=== PATIENT | female | born 1965 | race African-American/Black ===

== ENCOUNTER 2021-09-13 14:33 | Inpatient (IN) | payer OTHER ==
[~2021-09-13] VITALS: Ht 162.6 cm; Wt 76.7 kg
[2021-09-13 14:33] VITALS: BP 155/93
[2021-09-13] MEDS ORDERED: LANTUS SOL100 UNIT/1 SUBQ (15:21)
[2021-09-13] MEDS ORDERED: AMLODIPINE BESY10 MG PO (15:21)
[2021-09-13] MEDS ORDERED: SYMBICORT160 MCG/4. INH (15:22)
[2021-09-13] MEDS ORDERED: PROAIR HFA8.5 GM INH (15:22)
[2021-09-13] MEDS ORDERED: ATORVASTATIN CA20 MG PO (15:23)
[2021-09-13 15:28] LABS: ABSOLUTE NEUTROPHILS 3.9 thou/uL (1.4-8.2); BASOPHILS 0.8 % (0.0-2.0); EOSINOPHILS 13.6 % (0.0-3.0); HEMATOCRIT 39.3 % (37.0-47.0); LYMPHOCYTES 36.2 % (24.0-44.0); MCH 28.1 pg (26.0-34.0); MCHC 33.2 g/dL (28.0-37.0); MCV 84.6 fL (80.0-100.0); MONOCYTES 6.4 % (1.0-8.0); PLATELET COUNT 167 thou/uL (150-400); RBC 4.64 mil/uL (4.20-5.00); RDW 14.6 % (10.5-14.5); WBC 9.1 thou/uL (4.0-11.0)
[2021-09-13 15:32] LABS: CALCIUM 9.2 mg/dL (8.5-10.1); CREATININE 1.1 mg/dL (0.6-1.0); POTASSIUM 3.9 mmol/L (3.5-5.1)
[2021-09-13 15:42] LABS: ALBUMIN 3.6 g/dL (3.4-5.0); TOTAL BILIRUBIN 0.5 mg/dL (0.2-1.0); TOTAL PROTEIN 7.7 g/dL (6.4-8.2)
[2021-09-13 16:04] VITALS: BP 131/98
[2021-09-13 16:46] VITALS: BP 129/93
[2021-09-13 17:29] VITALS: BP 146/97
--- NOTE | 2021-09-13 17:48 | NUR ---
ASSUMED PT CARE AT 1700 FROM ED. PT IS ALERT & ORIENTED X4. PT HAS IV SITE ON RFA 20 GAUGE. PT HAS TELE MONITOR ON. PT IS ON 2L NC O2. PT IS ACCUCHECK ACHS. FINISHED ADMISSION. LAST BM WAS TODAY. PT STATED SHE USES CANE AND WALKER AT HOME. NO C/O OF PAIN, NAUSEA AND VOMITING. PT IS ON THE BED EATING DINNER, BED ON THE LOWEST POSITION, SIDE RAILS UP, CALL LIGHT WITHIN REACH. WILL CONTINUE TO MONITOR PT. FOLLOW POC.
[2021-09-13 20:56] VITALS: BP 157/103
--- NOTE | 2021-09-14 03:21 | NUR ---
ASSUMED CARE OF PT AT 1900. PT IS A/O X4 AND IS UP WITH SBA TO THE BSC DUE TO PT UNSTEADY GATE AND TREMORS. REMAINS WITH 2 LITERS O2 NC AND IS SOB WITH EXERTION. SCHEDULED BRTX GIVEN. LUNGS SOUND COARSE WITH WHEEZES. DENIES C/O PAIN OR DISCOMFORT. VSS. AFEBRILE. HS BS ELEVATED THIS NOC. INSULIN GIVEN DIRECTED. VOIDS PER BSC. NO BM THIS SHIFT. FALL PRECAUTIONS IN PLACE, CALL LIGHT IS WITHIN REACH.
[2021-09-14 05:27] LABS: HEMOGLOBIN 12.9 gm/dL (12.0-15.0); MCH 28.1 pg (26.0-34.0); MCHC 32.4 g/dL (28.0-37.0); MCV 86.7 fL (80.0-100.0); RBC 4.61 mil/uL (4.20-5.00); RDW 14.7 % (10.5-14.5); WBC 6.9 thou/uL (4.0-11.0)
[2021-09-14 05:47] LABS: CALCIUM 9.5 mg/dL (8.5-10.1); CREATININE 0.9 mg/dL (0.6-1.0); POTASSIUM 4.6 mmol/L (3.5-5.1)
[2021-09-14 08:01] VITALS: BP 132/97
--- NOTE | 2021-09-14 10:00 | EKG ---
[address] [address] ELECTROCARDIOGRAM REPORT Name: EVELYN COOKNIURKA Mead Room #: 444-P [facility] IN ..#: [id number] Admission: 09/13/21 Attend Phys: Danie Morgan MD Discharge: Date of : 69 Report #: [id number] [facility] ED Test Date: 2021-09-13 Test Time: 15:33:10 Pat Name: LYNNE COOK Department: Room: [facility] Gender: F Mercerizer Machine Operator: : 1965 Requested By: Ruddy Arnold Order Number: [id number] MD: Sukhwinder Mcnulty Measurements Intervals [place] Rate: 114 P: 51 SC: 127 QRS: 56 QRSD: 90 T: QT: 331 QTc: 456 Interpretive Statements Sinus tachycardia Left atrial enlargement Borderline T wave abnormalities No previous ECG available for comparison Electronically Signed On 09-14-2021 9:59:50 PATIENT NAVIGATOR by Sukhwinder Mcnulty [email or web address] <ELECTRONICALLY SIGNED> By: Sukhwinder Mcnulty MD 09/14/21 0959 [id number] Sukhwinder Mcnulty MD /EPI
[2021-09-14 11:10] VITALS: BP 155/104
[2021-09-14 16:13] VITALS: BP 151/98
--- NOTE | 2021-09-14 16:45 | NUR ---
PT ASSESSED THIS AM. EXPIRATORY WHEEZES NOTED IN ALL PIÑA. TACHY ON TELE AND NOTIFIED DR. JOHNS TO CHANGE TO XOEPENEX AND NOW HEART RATE MUCH BETTER. PT EATING AND DRINKING WELL. STATES SHE IS FEELING SO MUCH BETTER AMD PLANNING ON DC TOMORROW
[2021-09-14 20:43] VITALS: BP 114/67
--- NOTE | 2021-09-15 00:30 | NUR ---
ASSESSED AT START OF SHIFT. PT RECIEVEING BREATHING TREATMENT. DENIES PAIN, N/V. BSG CHECKED 249. INSULIN GIVEN. PI ON IVP STERIODS. IV INTACT AND SL. PT ON 2L OF O2. UP AD LIZA TO THE BATHROOM. SR ON THE MONITOR. NO FURTHER SIGNS OF DISCOMFORT WILL CONT TO MONITOR TILL EOS.
[2021-09-15 09:30] VITALS: BP 134/89
[2021-09-15 13:34] LABS: ABSOLUTE NEUTROPHILS 9.3 thou/uL (1.4-8.2); BASOPHILS 0.3 % (0.0-2.0); EOSINOPHILS 0.1 % (0.0-3.0); HEMATOCRIT 45.4 % (37.0-47.0); HEMOGLOBIN 14.6 gm/dL (12.0-15.0); LYMPHOCYTES 6.3 % (24.0-44.0); MCH 27.9 pg (26.0-34.0); MCHC 32.2 g/dL (28.0-37.0); MCV 86.6 fL (80.0-100.0); MONOCYTES 1.6 % (1.0-8.0); PLATELET COUNT 199 thou/uL (150-400); POLYS 91.7 % (36.0-66.0); RBC 5.25 mil/uL (4.20-5.00); RDW 14.6 % (10.5-14.5); WBC 10.1 thou/uL (4.0-11.0)
[2021-09-15 13:56] LABS: ALBUMIN 3.6 g/dL (3.4-5.0); CALCIUM 9.1 mg/dL (8.5-10.1); MAGNESIUM 2.3 mg/dL (1.8-2.4); POTASSIUM 3.7 mmol/L (3.5-5.1); TOTAL BILIRUBIN 0.5 mg/dL (0.2-1.0)
[2021-09-15 16:18] VITALS: BP 117/64
[2021-09-16 07:11] LABS: GLYCOHEMOGLOBIN (HGB A1C) 9.2 % (4.8-5.6)
[2021-09-16 07:55] VITALS: BP 146/87
--- NOTE | 2021-09-16 08:11 | NUR ---
PT AMBULATING TO BATHROOM INDEPENDENTLY AND IS TOLERATING FAIR. DENIES PAIN. RESTING COMFORTABLY. NO NEEDS VOICED. CALL LIGHT WITHIN REACH. FREQUENT OBSERVATION.
--- NOTE | 2021-09-16 11:20 | NUR ---
A/O X 4. ROOM AIR. AD LIZA. RIGHT FOREARM IV. AC HS. 10 UNITS LISPRO AT MEALS PLUS SLIDING SCALE. NO PAIN. 09/15 BM. EAGER TO GO HOME. BILATERAL LUNG WHEEZING.
[2021-09-16 11:48] VITALS: BP 128/80
[2021-09-16] MEDS ORDERED: LEVALBUTER1.25 MG/0. INH (14:53)
[2021-09-16] MEDS ORDERED: METOPROLOL TART25 MG PO (14:53)
[2021-09-16] MEDS ORDERED: METFORMIN HCL500 M3 PO (15:14)
[2021-09-16 15:18] VITALS: BP 128/80
[2021-09-16] MEDS ORDERED: PEPCID20 MG PO (17:58)
[2021-09-16] MEDS ORDERED: PREDNISONE 20 M20 M1 PO (17:58)
== END 2021-09-16 15:35 | disposition home or self-care (01) | DRG 189 ==
LOC: ER 14:33 → EROBS 16:38 → 4S 16:38
PROVIDERS: Emergency Medicine; Internal Medicine; ADMIT Hospitalist; ATTEND Hospitalist
DX: J96.01 Acute respiratory failure with hypoxia (principal); J44.1 Chronic obstructive pulmonary disease with (acute) exacerbation; I10 Essential (primary) hypertension; E66.3 Overweight; M06.9 Rheumatoid arthritis, unspecified; E78.5 Hyperlipidemia, unspecified; E03.9 Hypothyroidism, unspecified; Z20.822 Contact with and (suspected) exposure to COVID-19; Z79.899 Other long term (current) drug therapy; Z88.8 Allergy status to other drugs, medicaments and biological substances; Z91.012 Allergy to eggs; Z87.891 Personal history of nicotine dependence; Z68.29 Body mass index [BMI] 29.0-29.9, adult; E11.65 Type 2 diabetes mellitus with hyperglycemia
CPT/HCPCS: 10100

== ENCOUNTER 2021-09-30 02:19 | Inpatient (IN) | payer OTHER ==
[~2021-09-30] VITALS: Ht 162.6 cm; Wt 72.1 kg
[~2021-09-30 02:19] MED LIST: AMLODIPINE BESY10 MG PO; ATORVASTATIN CA20 MG PO; LANTUS SOL100 UNIT/1 SUBQ; LEVALBUTER1.25 MG/0. INH; METFORMIN HCL500 M3 PO; METOPROLOL TART25 MG PO; PEPCID20 MG PO; PREDNISONE 20 M20 M1 PO; PROAIR HFA8.5 GM INH; SYMBICORT160 MCG/4. INH
[2021-09-30 02:21] VITALS: BP 144/93
[2021-09-30 03:15] LABS: POTASSIUM 4.2 mmol/L (3.5-5.1)
[2021-09-30 03:19] LABS: ABSOLUTE NEUTROPHILS 4.4 thou/uL (1.4-8.2); BASOPHILS 0.7 % (0.0-2.0); EOSINOPHILS 6.7 % (0.0-3.0); HEMATOCRIT 41.5 % (37.0-47.0); HEMOGLOBIN 13.6 gm/dL (12.0-15.0); LYMPHOCYTES 33.6 % (24.0-44.0); MCH 28.2 pg (26.0-34.0); MCHC 32.9 g/dL (28.0-37.0); MCV 85.6 fL (80.0-100.0); MONOCYTES 8.2 % (1.0-8.0); PLATELET COUNT 143 thou/uL (150-400); POLYS 50.8 % (36.0-66.0); RBC 4.85 mil/uL (4.20-5.00); WBC 8.6 thou/uL (4.0-11.0)
[2021-09-30] MEDS ORDERED: PREDNISONE 10 M10 MG PO (05:39)
[2021-09-30 07:43] VITALS: BP 133/94
[2021-09-30 10:00] VITALS: BP 138/83
[2021-09-30 20:00] VITALS: BP 149/91
[2021-10-01] VITALS: BP 145/86
[2021-10-01 04:16] VITALS: BP 146/91
--- NOTE | 2021-10-01 07:37 | EKG ---
[address] [address] ELECTROCARDIOGRAM REPORT Name: LYNNE COOK Room #: 170- ADM IN M.R.#: [id number] Admission: 09/30/21 Attend Phys: Ayo Menjivar Discharge: Date of : 69 Report #: [id number] [facility] ED Test Date: 2021-09-30 Test Time: 02:35:51 Pat Name: LYNNE COOK Department: Room: 170 16 Gender: F Blankmaker: : 1965 Requested By: Aman Alonzo Order Number: [id number] MD: Vinod Johns Measurements Intervals [place] Rate: 111 P: 72 AL: 127 QRS: 53 QRSD: 74 T: QT: 326 QTc: 443 Interpretive Statements Sinus tachycardia Left atrial enlargement Borderline T abnormalities, lateral leads Compared to ECG 09/13/2021 15:33:10 No significant changes Electronically Signed On 10-01-2021 7:36:59 BUS TROLLEY AND TAXI INSTRUCTOR by Vinod Johns [email or web address] <ELECTRONICALLY SIGNED> By: Vinod Johns MD, [facility] 10/01/21 0736 [id number] Vinod Johns MD, FACC /EPI
[2021-10-01 11:56] VITALS: BP 146/90
--- NOTE | 2021-10-01 15:37 | NUR ---
Pt arrived to floor from emergency room per wc around 1300 in stable condition.Admission assessment completed with care plan. Pt c/o piv burning. It was replaced by Jeny mix house operator. Late lunch given and well tolerated.No further c/o at present.Will continue to monitor.
[2021-10-01 17:18] VITALS: BP 128/85
[2021-10-01 20:30] VITALS: BP 132/78
--- NOTE | 2021-10-02 06:42 | NUR ---
ASSUMED CARE OF PT AT 1900. PT ASSESSED TO BE AOX4 55F PRESENTING WITH COPD EXACERBATION. THROUGHOUT THE NIGHT PT WAS ABLE TO REST QUIETLY IN BED WITH NO COMPLAINTS, VSS. PT STABLE ON ROOM AIR, AMBULATES SBA, NO PAIN VERBALIZED, AND SUGARS HIGH DUE TO STEROIDS. EXPRESSES THAT SHE WOULD LIKE TO BE PUT ON A DIABETIC DIET TO BETTER CONTROL IT. WILL PASS ON TO DAY SHIFT RN.
[2021-10-02 07:54] VITALS: BP 150/95
[2021-10-02] MEDS ORDERED: LEVOFLOXACIN500 MG PO (11:22)
[2021-10-02] MEDS ORDERED: MEDROL4 M1 PO (11:23)
[2021-10-02 11:51] VITALS: BP 150/95
--- NOTE | 2021-10-02 12:47 | NUR ---
PT ALERT AND ORIENTED TIMES FOUR. VSS. PT DENIES PAIN/SOA. PT UP AB LIZA WITH STEADY GAIT. PT TOLERATES MEDS AND MEALS. PLANS FOR DISCHARGE TODAY. PT PROGRESSING TOWRADS POC GOALS.
--- NOTE | 2021-10-02 14:55 | NUR ---
PT ADMITTED RELATED TO COPD EXACERBATION. CM REVIEWED CHART AND SPOKE WITH CARE TEAM. CM MET WITH PT AT BEDSIDE THIS DAY. PT APPEARED TO BE A&O X4. CM ROLE INTRODUCED. PT INDICATED THAT SHE RESIDES IN A HOUSE WITH HER DTR AND 3 GRANDKIDS. PT INDICATED SHE HAS 12 STEPS DOWN TO THE BASEMENT WHERE SHE STAYS WITH A FULL BATHROOM. PT INDICATED SHE HAS A FWW AND A CAN FOR HOME USE BUT HAD BEEN INDEPDENENT WITH GAIT AND [facility] HOSPITAL CLEANING SPECIALIST. PT INDICATED SHE HAS INHALERS FOR HOME USE BUT NO NEBULIZER. PT INDICATED SHE HAS APPOINTMENT WITH DO ROGERS AND THE DIABETIC CLINIC IN THE VERY NEAR FUTURE. PT INDICATED SHE WAS INTERESTED IN A NEBULIZER FOR HOME USE. CM NOTIFIED HOSPITALIST AND SHE INDICATED THAT PT SHOULD SEE DR. ROGERS FOR A NEBULIZER. PT TO DC HOME THIS DAY. NO OTHER CM INTERVENTION INDICATED. CASE CLOSED.
== END 2021-10-02 13:18 | disposition home or self-care (01) | DRG 189 ==
LOC: ER 02:19 → 4W 07:53 → EROBS 07:53 → 4W 10-01 13:05
PROVIDERS: Student in an Organized Health Care Education/Training Program; ADMIT Hospitalist; ATTEND Hospitalist
DX: J96.90 Respiratory failure, unspecified, unspecified whether with hypoxia or hypercapnia (principal); J44.1 Chronic obstructive pulmonary disease with (acute) exacerbation; Z20.822 Contact with and (suspected) exposure to COVID-19; E11.9 Type 2 diabetes mellitus without complications; M06.9 Rheumatoid arthritis, unspecified; I10 Essential (primary) hypertension; Z91.012 Allergy to eggs; Z87.891 Personal history of nicotine dependence; Z82.49 Family history of ischemic heart disease and other diseases of the circulatory system
CPT/HCPCS: 10040

== ENCOUNTER 2021-11-25 07:58 | Inpatient (IN) | payer OTHER ==
[~2021-11-25] VITALS: Ht 162.6 cm; Wt 81.6 kg
[~2021-11-25 07:58] MED LIST changes: +LEVOFLOXACIN500 MG PO; +MEDROL4 M1 PO; +PREDNISONE 10 M10 MG PO
[2021-11-25 07:59] VITALS: BP 141/81
[2021-11-25] MEDS ORDERED: PREDNISONE 10 M10 MG PO (08:06)
[2021-11-25 08:37] LABS: ABSOLUTE NEUTROPHILS 5.1 thou/uL (1.4-8.2); BASOPHILS 1.1 % (0.0-2.0); EOSINOPHILS 7.8 % (0.0-3.0); HEMATOCRIT 41.5 % (37.0-47.0); HEMOGLOBIN 13.7 gm/dL (12.0-15.0); LYMPHOCYTES 37.2 % (24.0-44.0); MCH 28.2 pg (26.0-34.0); MCV 85.3 fL (80.0-100.0); MONOCYTES 6.3 % (1.0-8.0); PLATELET COUNT 175 thou/uL (150-400); POLYS 47.6 % (36.0-66.0); RBC 4.86 mil/uL (4.20-5.00); RDW 13.9 % (10.5-14.5); WBC 10.7 thou/uL (4.0-11.0)
[2021-11-25 08:52] LABS: CALCIUM 9.2 mg/dL (8.5-10.1); CREATININE 0.6 mg/dL (0.6-1.0); POTASSIUM 5.3 mmol/L (3.5-5.1)
[2021-11-25 09:00] LABS: ALBUMIN 3.4 g/dL (3.4-5.0); TOTAL BILIRUBIN 0.7 mg/dL (0.2-1.0); TOTAL PROTEIN 7.2 g/dL (6.4-8.2)
[2021-11-25 10:22] LABS: BE(vivo) 0.4 mmol/L (-2 to +3); PCO2 40.7 mmHg (35.0-45.0); PO2 61.5 mmHg (80.0-100.0); pH 7.407 (7.360-7.450); sO2 91.8 % (92.0-98.0)
[2021-11-25 12:01] VITALS: BP 123/84
--- NOTE | 2021-11-25 15:09 | NUR ---
Patient arrived at approximately 12 noon. Patient is A&Ox4 and able to make needs known and answer admission questions. Patient is saline locked with a RAC. Patient voiced needing a nicotine patch; provider ordered. Patient voiced sadness about her brother who commited suicide 4 months ago. SW consulted and provider asked for psych consult. Patient ambulates independently with no issues. On a CC diabetic diet. On RA; VSS. Voices no further needs. Endorsed to RN
[2021-11-25 19:22] LABS: CALCIUM 8.9 mg/dL (8.5-10.1); CREATININE 1.4 mg/dL (0.6-1.0)
[2021-11-25 19:25] LABS: POTASSIUM 4.3 mmol/L (3.5-5.1)
--- NOTE | 2021-11-25 19:36 | NUR ---
AC/HS for dinner was a critically high value. Provider notified & orders implemented.
[2021-11-25 20:11] VITALS: BP 132/85
--- NOTE | 2021-11-26 05:55 | NUR ---
PT AMBULATING TO BATHROOM INDEPENDENTLY AND IS TOLERATING WELL. DENIES PAIN. BLOOD SUGARS AN ISSUE DURING THIS SHIFT--PROVIDER AWARE. RESTING COMFORTABLY. NO NEEDS VOICED. CALL LIGHT WITHIN REACH. FREQUENT OBSERVATION.
[2021-11-26 07:40] VITALS: BP 138/94
--- NOTE | 2021-11-26 08:20 | EKG ---
[place] [address] [facility] [place] [address] ELECTROCARDIOGRAM REPORT Name: LYNNE COOK Room #: 443-P [facility] IN ..#: [id number] Admission: 11/25/21 Attend Phys: Ayo Menjivar Discharge: Date of : 69 Report #: [id number] [facility] ED Test Date: 2021-11-25 Test Time: 08:10:04 Pat Name: LYNNE COOK Department: Room: [facility] Gender: F Dispersion Mixer: STACY MEDINA : 1965 Requested By: Gil Bass Order Number: [id number] MD: Arthur Bautista Measurements Intervals [place] Rate: 122 P: 76 GA: 133 QRS: 59 QRSD: 84 T: -87 QT: 376 QTc: 536 Interpretive Statements Sinus tachycardia Nonspecific ST and T wave abnormality Prolonged QT interval Compared to ECG 09/30/2021 02:35:51 No significant change was found Electronically Signed On 11-26-2021 8:19:43 FORMULA TECHNICIAN by Arthur Bautista [email or web address] <ELECTRONICALLY SIGNED> By: Arthur Bautista MD, [facility] 11/26/21818 9 Arthur Bautista MD, [facility] /EPI
--- NOTE | 2021-11-26 11:33 | NUR ---
RD consult received for high blood sugar. Admit with COPD. Hx diabetes and pt states normally BG "fine" until go on steroids. BG 335-415 with A1C of 9.2. Has glargine and ss insulin orders. Pt states well aware of diet for diabetes, and has lost over 100# making better choices. Has menu and will order own meals. Presents low nutrition risk
[2021-11-26 12:01] VITALS: BP 139/80
[2021-11-26 15:44] VITALS: BP 111/73
--- NOTE | 2021-11-26 18:30 | NUR ---
PT ASSESSED AT START OF SHIFT. COUGHING UP LARGE AMTS CLEAR THICK SPUTUM. STARTED TAKING STEROIDS AND BLOOD SUGARS ELEVATING AND COVERED W/ SS INSULIN. EATING LARGE AMTS OF FOOD AT EACH MEAL. STATES AFTER STARTING MUCINEX SHE IS BRINGING UP MUCH MORE MUCOUS AND IS FEELING BETTER.
[2021-11-26 22:28] VITALS: BP 129/93
--- NOTE | 2021-11-27 07:23 | NUR ---
RECEIVED CARE OF THIS PATIENT AT 1900. PATIENT ALERT AND ORIENTED X4. PATIENT UP AD LIZA. DENIES PAIN. ACCUCHECK WAS 205, RECEIVED 10 UNITS LANTUS AND 14 SS LISPRO. SLEPT OFF AND ON DURING NIGHT.
[2021-11-27 08:00] VITALS: BP 129/90
[2021-11-27] MEDS ORDERED: LEVOFLOXACIN500 MG PO (08:11)
[2021-11-27] MEDS ORDERED: PREDNISONE 20 M20 MG PO (08:12)
[2021-11-27 09:57] VITALS: BP 129/90
--- NOTE | 2021-11-27 10:49 | NUR ---
IV REMOVED WITHOUT DIFFICULTY; CATHETER INTACT, PRESSURE DRESSING APPLIED; DISCHARGE INSTRUCTIONS GIVEN AND GONE OVER, ALL QUESTIONS ANSWERED, ENCOURAGED TO CALL IF SHE HAS ANY ADDITIONAL QUESTIONS. PT TAKEN TO FRONT DOOR, LEFT WITH DAUGHTER IN GOOD CONDITION; NORMAL RISE AND FALL OF CHEST SEEN, NO RESPIRATORY DISTRESS NOTED. DENIES PAIN, N/V/D/, CHEST PAIN.
--- NOTE | 2021-11-27 11:29 | NUR ---
ORDERS FOR EVAL AND TREAT HOWEVER Pt STATES SHE IS GETTING UP WITHOUT DIFFICULTY AND IS DISCHARGING HOME THIS AM. Pt DECLINING FORMAL P.T. EVAL
== END 2021-11-27 10:45 | disposition home or self-care (01) | DRG 637 ==
LOC: ER 07:58 → 4S 11:15 → EROBS 11:15 → 4S 12:08
PROVIDERS: Emergency Medicine; ADMIT Hospitalist; ATTEND Hospitalist
DX: E11.65 Type 2 diabetes mellitus with hyperglycemia (principal); J96.90 Respiratory failure, unspecified, unspecified whether with hypoxia or hypercapnia; J44.1 Chronic obstructive pulmonary disease with (acute) exacerbation; J44.0 Chronic obstructive pulmonary disease with (acute) lower respiratory infection; Z79.899 Other long term (current) drug therapy; J20.9 Acute bronchitis, unspecified; Z20.822 Contact with and (suspected) exposure to COVID-19; F12.90 Cannabis use, unspecified, uncomplicated; I10 Essential (primary) hypertension; M06.9 Rheumatoid arthritis, unspecified; Z91.012 Allergy to eggs; Z87.891 Personal history of nicotine dependence; Z83.3 Family history of diabetes mellitus; Z82.49 Family history of ischemic heart disease and other diseases of the circulatory system; Z83.6 Family history of other diseases of the respiratory system
CPT/HCPCS: 10100